=== PATIENT | male | born 1935 | race Caucasian/White ===

== ENCOUNTER 2016-06-06 19:33 | Inpatient (IN) | payer MEDICARE ==
[~2016-06-06] VITALS: Ht 177.8 cm; Wt 123.9 kg
[2016-06-06] VITALS (7 sets, daily range): BP systolic 116–154; BP diastolic 56–94; PULSE 94–102; RESP 18–36; O2SAT 95–98
[2016-06-06] MEDS ORDERED: Albuterol 2.5 mg/3 mL Inhalation Solution NEB ONE ×2 (19:53→20:49)
[2016-06-06 20:07] LABS: BASOPHILS % (AUTO) 0.1 % (0-3); EOSINOPHILS % (AUTO) 1.5 % (0-5); Mean Corpuscular Hemoglobin 30.9 pg (27.0-35.0); NEUTROPHILS % (AUTO) 82.2 % (40-74); Platelet Count 135 bil/L (150-400)
--- NOTE | 2016-06-06 20:08 | ED.REPORT ---
HPI-Dyspnea / Wheezing Date of Service Jun 06, 2016 ED Provider: Jose Ramirez MD This is a 81 year old male with a history of HTN, DM, aortic aneurysm, s/p cardiac stenting brought to the ED by EMS complaining of productive cough that began 2 days ago. Associated symptoms include rhinorrhea, nasal congestion, yellow sputum, fever, and chills. Denies chest pain, vomiting, nausea, or abdominal pain. Pt had the flu vaccine. Nursing Notes Stated Complaint: SHORT OF BREATH Chief Complaint: Respiratory Distress Nursing Notes Reviewed: Yes Allergies: Coded Allergies: No Known Allergies (Unverified , 06/06/16) General Time Seen by MD: 19:55 Chief Complaint Cough Arrived By: Ambulance Sudden in Onset?: Yes Onset Occurred: 2 days ago Symptom Duration: Since onset Severity: Current: No pain currently Pertinent Negative: Pt denies other symptoms Recent Healthcare: No recent doctor visit, No recent hospitalization Similar Sx Previous: No Past Medical History Past Medical History Notes: DNR Past Medical History DM HTN Hyperlipidemia Hx aortic aneurysm 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 GI: Denies: Abdominal pain, Nausea, Vomiting Neurologic: Denies: Headache Physical Exam Initial Vital Signs Vital Signs (First) Date Time Temp Pulse Resp B/P Pulse Ox O2 Delivery O2 Flow Rate FiO2 06/06/16 19:42 39 102 36 154/94 95 Non-Rebreather 10 Initial VS: Reviewed Head / Eyes: Atraumatic, Normocephalic, PERRL ENT: Mucous membranes moist, Conjunctiva normal, No scleral icterus Abdomen / GI: Soft, Non-tender, No guarding, No rebound, No distention Extremities: Vascular intact, Neuro intact, No swelling, No tenderness Skin: Warm, Dry, No cyanosis Neurologic: Alert, Oriented, Nonfocal Psychiatric: Mood/affect normal, Behavior normal, Normal thought content General/Constitutional: Awake, Alert Neck: Atraumatic, Supple, No meningismus, Full range of motion, No swelling, Non-tender, No masses Respiratory / Chest: No wheezing Coarse breath sounds bilaterally Cardiovascular: Heart rate NL, Regular rhythm, Heart sounds NL, Peripheral circulation NL Interpretation & Diagnostics Lab Results Interpretation Result Diagram: 06/06/16 1950 06/06/16 1950 Test 06/06/16 19:50 06/06/16 21:30 White Blood Count 8.2th/mm3 (3.8-10.1) Red Blood Count 4.33mil/mm3 (4.40-5.80) Hemoglobin 13.4g/dL (13.8-17.2) Hematocrit 42.0% (41.0-50.0) Mean Corpuscular Volume 97.0fL (81-100) Mean Corpuscular Hemoglobin 30.9pg (27.0-35.0) Mean Corpuscular Hemoglobin Concent 31.9% (32.0-37.0) Red Cell Distribution Width 13.3% (12.3-15.4) Platelet Count 135bil/L (150-400) Neutrophils (%) (Auto) 82.2% (40-74) Lymphocytes (%) (Auto) 9.1% (14-46) Monocytes (%) (Auto) 7.0% (4-12) Eosinophils (%) (Auto) 1.5% (0-5) Basophils (%) (Auto) 0.1% (0-3) Sodium Level 135mEq/L (134-144) Potassium Level 4.5mEq/L (3.5-5.2) Chloride Level 95mEq/L (97-108) Carbon Dioxide Level 29mmol/L (18-29) Blood Urea Nitrogen 14mg/dL (8-27) Creatinine 0.66mg/dL (0.76-1.27) Estimat Glomerular Filtration Rate 124mL/min (>59) Glucose Level 155mg/dL (60-99) Lactic Acid Level 1.9mmol/L (0.4-2.0) Calcium Level 8.8mg/dL (8.5-10.1) Magnesium Level 1.3mg/dL (1.6-2.6) Total Bilirubin 0.6mg/dL (0.0-1.2) Aspartate Amino Transf (AST/SGOT) 19U/L (0-50) Alanine Aminotransferase (ALT/SGPT) 16U/L (0-44) Alkaline Phosphatase 54U/L (25-160) Troponin T < 0.010ug/L (0.0-0.011) Total Protein 6.6g/dL (6.4-8.4) Albumin 3.4g/dL (3.4-5.0) Urine Color Yellow (YELLOW) Urine Appearance Cloudy (CLEAR,HAZY) Urine pH 5.0 (5.0-8.0) Urine Specific [place] 1.028 (1.003-1.035) Urine Protein 30mg/dL (NEG,TRACE) Urine Glucose (UA) Negativemg/dL (NEGATIVE) Urine Ketones Tracemg/dL (NEGATIVE) Urine Occult Blood Small (NEGATIVE) Urine Nitrite Positive (NEGATIVE) Urine Bilirubin Negative (NEGATIVE) Urine Urobilinogen Normalmg/dL (NORMAL) Urine Leukocyte Esterase Trace (NEGATIVE) Urine RBC 3-10/hpf (0-2) Urine WBC 11-50/hpf (0-5) Urine Epithelial Cells Occasional/hpf (NONE-MOD) Urine Crystals Amorphous urates (NONE Urine Bacteria Moderate/hpf (NONE-FEW) Urine Hyaline Casts None/lpf (NONE) Urine Granular Casts None seen (NONE SEEN) Urine Waxy Casts None seen (NONE SEEN) Urine Red Blood Cell Casts None seen (NONE SEEN) Urine White Blood Cell Casts None seen (NONE SEEN) Urine Mucus Present (None Seen) Urine Trichomonas None seen (NONE SEEN) Urine Yeast None (NONE SEEN) Urinalysis Comment None Urine Culture Reflexed Indicated ECG Interpretation ECG Interpretation: Tachycardia at a rate of 102 Prolonged IL interval Left atrial enlargement RBBB T-wave inversion in V1-[address] elevation Time: 20:19 Interpreted by: ED physician X-Ray Chest Interpretation Chest Xray Interpretation: IMPRESSION: Left lower lobe infiltrate suspicious for pneumonia. Tortuous aneurysmal aorta. Dictated by: Ravinder Torres M.D. on 06/06/2016 at 20:56 Approved by: Ravinder Torres M.D. on 06/06/2016 at 20:56 Re-Eval/Medical Decision Med Decision/Clinical Course 81-year-old male history of aortic aneurysm status post repair, diabetes, hypertension presented in respiratory distress. Patient with labored breathing on arrival requiring 10 L vapotherm fever to 103. Chest x-ray left lower lobe pneumonia. Influenza negative. White blood cell count normal. Lactate is 1.9. Patient was given several nebulizers and his oxygen improved to requiring 6 L. Patient will be admitted to [facility] with dose of Levaquin given here in the ER for pneumonia. He was also given a dose of Rocephin for possible UTI. Cultures sent prior to antibiotics. Re-Evaluation/Progress : Time of Eval: 21:33 Re-Evaluation/Progress Note: Discussed need for admission with family, all questions addressed. Consultation : Referral / Consult Name: Abena Ramos MD Consulted With: Hospitalist Call Returned at: 21:33 Dialysis Registered Nurse: Accepts admit Counseled Regarding: Diagnosis, Lab results, Need for follow-up, Need for admission Discharge & Departure Impression: Primary Impression: Pneumonia Pneumonia type: due to unspecified organism Laterality: bilateral Lung location: lower lobe of lung Qualified Code: J18.9 - Pneumonia, unspecified organism Additional Impression: UTI (urinary tract infection) Urinary tract infection type: site unspecified Hematuria presence: without hematuria Qualified Code: N39.0 - Urinary tract infection, site not specified Disposition: ADMITTED TO HOSPITAL Discharge Condition All VS Reviewed: Yes Condition: Stable Referrals: Denilson Swann PA-C (PCP) Scribe Attestation Portions of this note were transcribed by Tiffany Padilla. I, Dr. Ramirez personally performed the history, physical exam and medical decision-making; I reviewed and confirmed the accuracy of the information in the transcribed note. Signed by: Tiffany Padilla. 06/06/2016, 2030. Jose Ramirez MD Jun 06, 2016 20:08 TIFFANY PADILLA Jun 06, 2016 20:16
[2016-06-06] MEDS ORDERED: 0.9% Sodium Chloride 1,000 ML IV ONE (20:20)
[2016-06-06 20:33] LABS: TROPONIN T < 0.010 ug/L (0.0-0.011)
[2016-06-06 20:40] LABS: Magnesium 1.3 mg/dL (1.6-2.6)
[2016-06-06] MEDS ORDERED: Albuterol-Ipratropium 3 mL Inhalation Solution ONE (20:49)
--- NOTE | 2016-06-06 20:57 | DRSVH ---
PROCEDURE: X-RAY CHEST ONE VIEW, PORTABLE ([id number]) INDICATIONS: sob, fever TECHNIQUE: One view of the chest was acquired. COMPARISON: [facility], CR, XR CHEST 2VW, 12/30/2014, 14:16. FINDINGS: Surgical changes and devices: There is a stent descending aorta. Lungs and pleura: Left lower lobe opacity may be infiltrate. No pleural effusions or pneumothorax. Mediastinum: Mediastinal contours appear normal. Heart size is normal. Aorta is tortuous and aneur ysmal. Bones and chest wall: No suspicious bony lesions. Overlying soft tissues appear unremarkable. IMPRESSION: Left lower lobe infiltrate suspicious for pneumonia. Tortuous aneurysmal aorta. Dictated by: Ravinder Torres M.D. on 06/06/2016 at 20:56 Approved by: Ravinder Torres M.D. on 06/06/2016 at 20:56
[2016-06-06] MEDS ORDERED: levoFLOXacin Inj 750 MG in IV Premix 1 EACH IV ONE (21:15)
[2016-06-06] MEDS ORDERED: Ondansetron 2 mg/mL 2 mL Inj IVPUSH PRN (21:40)
[2016-06-06] MEDS ORDERED: Alum-Mag Hydrox-Simeth 30 mL Suspension PO PRN ×2 (21:40→22:30)
[2016-06-06 21:56] LABS: APPEARANCE,URINE CLOUDY (CLEAR,HAZY); COLOR,URINE YELLOW (YELLOW); OCCULT BLOOD,URINE SMALL (NEGATIVE)
[2016-06-06 21:57] LABS: UROBILINOGEN,URINE NORMAL (NORMAL)
[2016-06-06] MEDS ORDERED: cefTRIAXone Inj 1,000 MG in IV Premix 1 EACH IV ONE (22:15)
[2016-06-06] MEDS ORDERED: Polyethylene Glycol (PEG) 17 Gm Powder PO PRN (22:30)
[2016-06-06] MEDS ORDERED: Albuterol 2.5 mg/3 mL Inhalation Solution NEB PRN (22:30)
[2016-06-06] MEDS ORDERED: Magnesium Sulf 4 Gm/100 mL H2O 4 GM in IV Premix 1 EACH IV ONE (22:35)
[2016-06-06] MEDS ORDERED: 0.9% Sodium Chloride 250 ML ONE (23:33)
[2016-06-06] MEDS ORDERED: METF500T4 PO (23:42)
[2016-06-06] MEDS ORDERED: ENAL5TAB PO (23:46)
[2016-06-06] MEDS ORDERED: TRAZ-118 PO (23:46)
[2016-06-06] MEDS ORDERED: PRAV20TA2 PO (23:46)
[2016-06-06] MEDS ORDERED: AMLO5TAB2 PO (23:46)
[2016-06-06] MEDS ORDERED: HYDR-3825 PO (23:46)
[2016-06-06] MEDS ORDERED: METO50TA3 PO (23:46)
[2016-06-06] MEDS ORDERED: KRIL1CAP22 PO (23:51)
[2016-06-06] MEDS ORDERED: CHOL10008 PO (23:51)
[2016-06-06] MEDS ORDERED: CRAN500T2 PO (23:51)
[2016-06-06] MEDS ORDERED: MILK500C PO (23:51)
[2016-06-06] MEDS ORDERED: MULT1CAP33 PO (23:51)
[2016-06-06] MEDS ORDERED: MULT-1052 PO (23:51)
[2016-06-06] MEDS ORDERED: UBID100C25 PO (23:51)
[2016-06-07] VITALS (15 sets, daily range): BP systolic 108–138; BP diastolic 41–77; PULSE 68–104; RESP 20–28; O2SAT 90–98
--- NOTE | 2016-06-07 | NUR ---
Admit to PCC Pt admitted to PCC room 2023 from ED in stable condition. A&O x 3. Able to move upper arms, with severe deficits in B legs s/p SCI in 2013. This is pts baseline. Tele shoed SR 90s with 1 degree AVB and IVCD. SpO2 high 90s on 5L Oxymask. Denies CP or worsening SOB. Audible wheezes heard without stethoscope, but pt does not appear to be in resp. distress. Also denies n/v/d or abdominal pain. Suprapubic catheter present on admission and appears to be draining to gravity. Brief in place for fecal incontinence. Pt oriented to room, floor, and call light. Family at bedside to sign belongings sheet. Pt bottom is red, so will initiate q2-3 hour turns. He assists well with this. Care ongoing
[2016-06-07] MEDS ORDERED: Glucose 40% Oral Gel 15 Gm Tube PO PRN (00:20)
--- NOTE | 2016-06-07 00:23 | PCM.HPMED ---
Subjective Date of Service Jun 06, 2016 Primary Provider: Admitting Physician: Abena Ramos MD Primary Care Physician: Denilson Swann PA-C Attending Physician: Abena Ramos MD Chief Complaint: Dyspnea, Cough, Fever and Chills History of Present Illness: Patient is a 81-year-old male with hypertension, type 2 diabetes, CAD s/p CABG, dyslipidemia and AAA presenting with dyspnea, cough and fever. Patient is accompanied at bedside by his family. He and his are residents at [place]. Patient reports onset of shortness of breath two days ago that was accompanied by a productive cough with yellow/green sputum. Patient states he had worsening shortness of breath with wheezing, and initially did not have a fever but at 4PM today he started experiencing uncontrollable shaking chills with a recorded temperature of 103.2F. This prompted him to be brought in by his family for further evaluation. Patient says he tried cough syrup and Mucinex. He also endorses some rhinorrhea but otherwise denies chest pain, nausea, emesis, lightheadedness, dizziness, abdominal pain. 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 At time of visit, the patient reports his breathing is a little improved. Patient denies supplemental oxygen use at home. He reports being up to date with pneumonia vaccines. In the ED, vitals: temp 39, HR 97, RR 20 satting 97% on 6L. Labs: WBC 8.2, platelets 135. BUN 14, creatinine 0.66. Lactic acid 1.9. Troponin<0.010. Influenza screen negative. Chest x-ray reads left lower lobe infiltrate. Patient was given levofloxacin and ceftriaxone in the ED. Review of Systems: A comprehensive review of systems was conducted with the patient and found to be negative except as above in the History of Present Illness. Allergies Coded Allergies: No Known Drug Allergies (Verified Allergy, Unknown, 06/06/16) Home Medications Metformin 1000mg PO BID Enalapril 5mg PO BID Metoprolol 50mg PO BID Amlodipine 5mg PO BID Pravastatin 20mg PO daily Trazodone 100mg PO QHS Hydrocodone 7.5mg PO TID PMH Hypertension Type 2 diabetes mellitus AAA CAD s/p CABG Dyslipidemia Paraplegia History of prostate cancer s/p seed therapy . Surgical History Cholecystectomy Back surgery Appendectomy Cataracts Lithotripsy Family History Mother at [id number] from pancreatic cancer Father in his 70s from CHF Social History Occupation: Retired, former forklift oper. Hx Alcohol Use: No Hx Substance Use: No Hx Tobacco Use: No Smoking Status: Unknown if Ever Smoker Living Arrangement: Assisted Living ([facility]) Exam Vital Signs Vital Sign - Last Date Time Temp Pulse Resp B/P Pulse Ox O2 Delivery O2 Flow Rate FiO2 06/06/16 22:20 98 26 116/56 96 Simple Mask 5 06/06/16 22:04 38.1 Exam General: Obese gentleman, Mild distress, Well-developed, Well-nourished, Appropriately interactive HEENT: Normocephalic, atraumatic. External ears without defect. Pupils equal, round, and reactive to light. Anicteric sclerae, moist conjunctivae, and no lid lag. Oropharynx free of erythema and cobble stoning with moist mucosa. Neck: Supple. No jugular venous distension appreciated. No lymphadenopathy or thyromegaly. Cardiovascular: Regular rate and rhythm with no murmurs, rubs, or gallops appreciated Pulmonary: Diffuse wheezes bilaterally. Increased work of breathing. Abdomen: Bowel tones present. Obese. Soft, nontender, nondistended Genitourinary: Suprapubic catheter with Herrera bag in place Extremities: Mild pitting edema in lower extremities bilaterally. No clubbing, cyanosis, or lymphadenopathy appreciated. Neurological: Paraplegia. Psychiatric: Normal mood and affect.Alert and oriented to person, place, and time. Lab and Diagnostics Result Diagram: 06/06/16194906/06/161949 X-Rays, CTs and MRIs Date of Service: 06/06/161944 PROCEDURE: X-RAY CHEST ONE VIEW, PORTABLE ([id number]) INDICATIONS: sob, fever TECHNIQUE: One view of the chest was acquired. COMPARISON: [facility], CR, XR CHEST 2VW, 12/30/2014, 14:16. FINDINGS: Surgical changes and devices: There is a stent descending aorta. Lungs and pleura: Left lower lobe opacity may be infiltrate. No pleural effusions or pneumothorax. Mediastinum: Mediastinal contours appear normal. Heart size is normal. Aorta is tortuous and aneurysmal. Bones and chest wall: No suspicious bony lesions. Overlying soft tissues appear unremarkable. IMPRESSION: Left lower lobe infiltrate suspicious for pneumonia. Tortuous aneurysmal aorta. Dictated by: Ravinder Torres M.D. on 06/06/2016 at 20:56 Approved by: Ravinder Torres M.D. on 06/06/2016 at 20:56 Assessment & Plan Patient is a 81-year-old male with hypertension, type 2 diabetes, CAD s/p CABG, dyslipidemia and AAA presenting with dyspnea, cough and fever and admitted for pneumonia: 1. Severe sepsis. Present on admission. Active -Meets criteria with temp (39F), HR (102), RR (36) with suspected pulmonary and genitourinary source -Patient received 1L NS in ED -Lactic acid 1.9 -Blood and urine cultures pending 2. Community acquired pneumonia. Present on admission. Active -Chest x-ray reads left lower lobe infiltrate -Ceftriaxone and levofloxacin given in the ED -Pending studies: procalcitonin, Legionella and strep pneumo urine Ag, Respiratory virus PCR -Continue supplemental oxygen to maintain O2 sats>90% -Ceftriaxone and azithromycin 3. Urinary tract infection. Present on admission. Active -UA with nitrites, leukocyte esterase, WBC 11-50, bacteria in the setting of patient with suprapubic catheter -Urine culture pending -Abx as above 4. Mild thrombocytopenia, unknown acuity. Present on admission. Active -Monitor with CBC 5. Type 2 diabetes mellitus, chronic. Present on admission -Bedside glucose checks -Hold metformin -Low dose correctional insulin Lispro 6. CAD, chronic. Present on admission -Continue home statin, metoprolol 7. Hypertension, chronic. Present on admission -Continue home metoprolol, amlodipine, enalapril Patient Status: Patient is admitted under inpatient status with expected length of stay greater than 2 midnights due to severity of presenting symptoms, risk of adverse event, and complexity of treatment plan. GI Prophylaxis: Not indicated VTE Prophylaxis: Sub-Q Heparin (Unfractionated) Resuscitation Status: DNR/DNI:Do Not Resuscitate/Intubate Attending Statement Pt seen and examined by myself and agree with above plan. Cristobal Chiang DO Jun 06, 2016 22:34 Abena Ramos MD Jun 08, 2016 06:06
[2016-06-07] MEDS: Albuterol 2.5 mg/3 mL Inhalation Solution NEB SCH ×6 (00:30→19:59)
[2016-06-07] MEDS: Heparin 5,000 Unit/mL Inj SUBQ SCH ×3 (01:16→17:17)
[2016-06-07 04:07] LABS: BASOPHILS % (AUTO) 0.1 % (0-3); EOSINOPHILS % (AUTO) 0.4 % (0-5); MONOCYTES % (AUTO) 9.2 % (4-12); Mean Corpuscular Hemoglobin 30.7 pg (27.0-35.0); NEUTROPHILS % (AUTO) 78.9 % (40-74); Platelet Count 134 bil/L (150-400)
[2016-06-07 04:25] LABS: Magnesium 2.3 mg/dL (1.6-2.6)
[2016-06-07] MEDS: cefTRIAXone Inj 2,000 MG in IV Premix 1 EACH IV SCH (07:46)
[2016-06-07] MEDS: Insulin LISPRO 300 Unit/3 mL Inj SUBQ SCH ×4 (08:00→22:33)
[2016-06-07] MEDS: predniSONE 20 mg Tablet PO SCH (12:22)
[2016-06-07] MEDS: HYDROcodone-APAP 7.5-325 mg Tablet PO SCH ×2 (12:23→20:55)
--- NOTE | 2016-06-07 14:04 | NUR ---
Evaluation completed. Rec: Schwana/Soft with no straws. Medication with nectar. AUTOMOTIVE PARTS SPECIALIST to follow Please go to "Notes" then click on "Assessments and Notes" (bottom left corner of screen). Then select appropriate discipline tab on top of screen.
--- NOTE | 2016-06-07 16:17 | NUR ---
Social Work: Initial Assessment D: Per EMR review, pt is a 81 year old male admitted for pneumonia. Pt is Medicare with [employer] suppplement; Pt does not have LTC insurance or VA benefits. PCP is Denilson Swann PA-C. NOK is Ariana Sinclair, , . POLST on file- pt declined further AD information. Readmit score not entered at this time. NUCLEAR POWER REACTOR OPERATOR met with pt at bedside. Pt is a resident at [facility]. Pt states that he is I at baseline. He does not drive. Pt states he has home health however cannot remember which company it is through. Pt states that he would like to return to [place] at time of discharge. Pt worked with PT and has been cleared to go home/Return to [facility]. t/c to [facility] admissions; they will follow the pt's care. Access provided. A: Pt who is I at baseline. P: Anticipate pt to discharge back to [facility] once medically stable; [place] or patient's to transport. NUCLEAR POWER REACTOR OPERATOR to continue to follow. KATIE Bah Addendum: 06/07/16 at 1621 by LAWANDA VALVERDE Amended: Links added.
--- NOTE | 2016-06-07 18:26 | NUR ---
Respiration/Ambulation Pt. was on 5L NC, lung sounds wheezy and rhonci this morning. Pt. on 2L NC SpO2 96% this evening and diminished wheezing and rhonci sounds noted. Pt. ambulated x2 this shift with PT and RN/SOLID WASTE DISPOSAL MANAGER using a FWW, Pt. stated no SOB upon walking.
--- NOTE | 2016-06-07 19:16 | PCM.PNMED ---
Subjective Date of Service Jun 07, 2016 Subjective Yahir Grant is a 81-year-old gentleman with a past medical history significant for hypertension, type 2 diabetes, CAD s/p CABG, dyslipidemia and AAA who presented form [facility] with dyspnea, cough and fever. He met sepsis criteria and was admitted for severe sepsis secondary to pneumonia and urinary tract infection. Ad[facility] the [facility] with telemetry. Exam Vital Signs Vital Sign - Last Date Time Temp Pulse Resp B/P Pulse Ox O2 Delivery O2 Flow Rate FiO2 06/07/16 12:22 74 26 97 Nasal Cannula 4.00 06/07/16 11:56 36.8 118/58 Intake and Output 06/06/16 06/06/16 06/07/16 Cumulative From/Thru 15:00 23:00 07:00 06/06/16 19:42 - 06/07/16 06:07 Intake Total 1000 ml 200 ml 1200 ml Output Total 300 ml 200 ml 500 ml Balance 700 ml 0 ml 700 ml Intake IV Total 1000 ml 200 ml 1200 ml Output Urine Total 300 ml 200 ml 500 ml # Voids 1 1 # Bowel Movements 0 0 Exam General: Well-developed, Obese gentleman, appears uncomfortable but in no acute distress. Appropriately interactive. HEENT: Normocephalic, atraumatic. External ears without defect. PERRLA. Anicteric sclerae. Moist mucosa. Neck: Supple. No jugular venous distension appreciated. No lymphadenopathy or thyromegaly. Cardiovascular: Regular rate and rhythm with no murmurs, rubs, or gallops appreciated Pulmonary: Symmetric chest rise with diffuse wheezes in all lung kelly. Increased work of breathing. Abdomen: Bowel tones present. Soft, obese, nontender, nondistended. No hepatomegaly or masses appreciated. Genitourinary: Suprapubic catheter with Herrera bag in place, no surrounding erythema or skin breakdown. Extremities: Mild pitting edema in lower extremities bilaterally. No clubbing, cyanosis, or lymphadenopathy appreciated. Psychiatric: Alert and oriented to person, place, and time. Normal mood and affect IVs and Medications Medications Reviewed: Medications were reviewed in detail Lab and Diagnostics White Blood Count 9.3, Red Blood Count 4.04, Hemoglobin 12.4, Hematocrit 39.6, Mean Corpuscular Volume 98.0, Mean Corpuscular Hemoglobin 30.7, Mean Corpuscular Hemoglobin Concent 31.3, Red Cell Distribution Width 13.4, Platelet Count 134, Neutrophils (%) (Auto) 78.9, Lymphocytes (%) (Auto) 11.3, Monocytes ( %) (Auto) 9.2, Eosinophils (%) (Auto) 0.4, Basophils (%) (Auto) 0.1 Sodium Level 136, Potassium Level 4.6, Chloride Level 96, Carbon Dioxide Level 30, Blood Urea Nitrogen 15, Creatinine 0.72, Estimat Glomerular Filtration Rate 112, Glucose Level 154, Calcium Level 8.3, Magnesium Level 2.3, Total Bilirubin 0.6, Aspartate Amino Transf (AST/SGOT) 15, Alanine Aminotransferase (ALT/SGPT) 13, Alkaline Phosphatase 46, Total Protein 5.7, Albumin 3.3, Procalcitonin 0.11 Result Diagram: 06/07/16 0350 06/07/16 0350 Microbiology Preliminary urine culture negative. Blood cultures pending. Urine legionella and S.pneumoniae antigens negative. X-Rays, CTs and MRIs X-RAY CHEST ONE VIEW, PORTABLE (05/28/16) IMPRESSION: Left lower lobe infiltrate suspicious for pneumonia. Tortuous aneurysmal aorta. Dictated and approved by: Ravinder Torres M.D. on 06/06/2016 at 20:56 Assessment & Plan Patient is a 81-year-old male with hypertension, type 2 diabetes, CAD s/p CABG, dyslipidemia and AAA presenting with dyspnea, cough and fever and admitted for severe sepsis secondary to pneumonia and urinary tract infection. Hospital day # 1. 1. Severe sepsis. Present on admission. Active -Met criteria with elevated temp, tachycardia, tachypnea, with pulmonary and genitourinary source. -Received 1L of normal saline in the ED -Lactic acid 1.9 -Urine culture negative -Blood cultures pending 2. Community acquired pneumonia. Present on admission. Active -Chest x-ray reads left lower lobe infiltrate -Ceftriaxone and levofloxacin given in the ED -Procalcitonin 0.11, Legionella and strep pneumo urine Ag negative -Respiratory virus PCR positive for Metapneumovirus -Continue supplemental oxygen to maintain O2 sats>90% -Switch ceftriaxone/azithromycin to Zosyn to cover for HCAP (patient resident of [place]) 3. Urinary tract infection. Present on admission. Active -UA with nitrites, leukocyte esterase, WBC 11-50, bacteria in the setting of patient with suprapubic catheter -Urine culture with no growth thus far -Abx as above 4. Mild thrombocytopenia, unknown acuity. Present on admission. Active -Monitor with CBC 5. Type 2 diabetes mellitus, chronic. Present on admission -HbA1c pending -Bedside glucose checks -Hold metformin -Low dose correctional insulin Lispro 6. CAD, chronic. Present on admission -Continue home statin, metoprolol 7. Hypertension, chronic. Present on admission -Continue home metoprolol, amlodipine, enalapril 8. Chronic pain, present on admission. -Continue home dosing Hydrocodone 7.5mg po tid. Acetaminophen-fever/headache/mild/moderate pain Antiemetics, as needed Bowel regimen, as needed. Disposition: Patient will likely need several more days on inpatient monitoring for IV fluids and antibiotics. Pain Evaluation: Adequate Pain Control GI Prophylaxis: Not indicated VTE Prophylaxis: Sub-Q Heparin (Unfractionated) VTE Mechanical Devices: Intermittant Pneumatic CD Resuscitation Status: DNR/DNI:Do Not Resuscitate/Intubate Attending Statement The patient was seen and examined together with Dr. Figueroa on 06/07/2016 and I agree with the history, exam and plan as outlined in the note above. . Alyssa Figueroa DO Jun 07, 2016 14:46 Adrian Aguilar MD Jun 21, 2016 17:40
[2016-06-08] VITALS (14 sets, daily range): BP systolic 115–147; BP diastolic 61–86; PULSE 64–94; RESP 16–28; O2SAT 88–96
[2016-06-08] MEDS: Heparin 5,000 Unit/mL Inj SUBQ SCH ×3 (00:44→16:20)
[2016-06-08] MEDS: Albuterol 2.5 mg/3 mL Inhalation Solution NEB SCH ×6 (01:12→20:16)
--- NOTE | 2016-06-08 03:19 | NUR ---
O2/Tele/SL A&Ox3 , . Suprapubic catheter draining pale yellow urine to gravity/ On 2 L O2 per NC. Saline locked, Wheezy breath sounds, Denies pain beyond chronic pain. Tele: SR,1st degree HB, some varied ectopy. Droplet precautions for Metapneumovirus . (pneumonia)
[2016-06-08 06:20] LABS: BASOPHILS % (AUTO) 0.1 % (0-3); EOSINOPHILS % (AUTO) 0 % (0-5); MONOCYTES % (AUTO) 6.3 % (4-12); Mean Corpuscular Hemoglobin 30.6 pg (27.0-35.0); Mean Corpuscular Volume 99 fL (81-100); NEUTROPHILS % (AUTO) 79.1 % (40-74); Platelet Count 148 bil/L (150-400)
[2016-06-08] MEDS: Insulin LISPRO 300 Unit/3 mL Inj SUBQ SCH ×4 (07:43→19:31)
[2016-06-08] MEDS: cefTRIAXone Inj 2,000 MG in IV Premix 1 EACH IV SCH (07:44)
[2016-06-08] MEDS: predniSONE 20 mg Tablet PO SCH (07:45)
[2016-06-08] MEDS: HYDROcodone-APAP 7.5-325 mg Tablet PO SCH ×3 (07:45→19:26)
--- NOTE | 2016-06-08 10:35 | PCM.PNMED ---
Subjective Date of Service Jun 08, 2016 Subjective Yahir Grant is a 81-year-old gentleman with a past medical history significant for hypertension, type 2 diabetes, CAD s/p CABG, dyslipidemia and AAA who presented form [facility] with dyspnea, cough and fever. He met sepsis criteria and was admitted for severe sepsis secondary to pneumonia and urinary tract infection. Patient states that he is feeling much better this morning. He reports a productive cough, good appetite and denies chest pain, palpitations, abdominal pain, nausea or vomiting. He endorses working with physical therapy yesterday and ambulated in the hallway several times. No acute events overnight. Per nursing, patient's suprapubic catheter continues to drain pale/yellow urine. Patient ambulated with physical therapy using a four -wheeled walker and SpO2 96% on 2l nasal cannula. Exam Vital Signs Vital Sign - Last Date Time Temp Pulse Resp B/P Pulse Ox O2 Delivery O2 Flow Rate FiO2 06/08/16 05:29 64 16 94 Nasal Cannula 2.00 06/08/16 04:08 36.5 120/61 Intake and Output 06/07/16 06/07/16 06/08/16 Cumulative From/Thru 15:00 23:00 07:00 06/06/16 19:42 - 06/08/16 05:09 Intake Total 60 ml 550 ml 1810 ml Output Total 1100 ml 800 ml 2400 ml Balance -1040 ml -250 ml -590 ml Intake Oral 550 ml 550 ml IV Total 60 ml 1260 ml Output Urine Total 1100 ml 800 ml 2400 ml # Voids 1 # Bowel Movements 0 0 Exam General: Well-developed, Obese gentleman, appears comfortable. In no acute distress. Appropriately interactive. HEENT: Normocephalic, atraumatic. External ears without defect. PERRLA. Anicteric sclerae. Moist mucosa. Neck: Supple. No jugular venous distension appreciated. No lymphadenopathy or thyromegaly. Cardiovascular: Regular rate and rhythm with no murmurs, rubs, or gallops appreciated Pulmonary: Symmetric chest rise with diffuse wheezes in all lung kelly.Normal respiratory effort Abdomen: Bowel tones present. Soft, obese, nontender, nondistended. No hepatomegaly or masses appreciated. Genitourinary: Suprapubic catheter with Herrera bag in place, no surrounding erythema or skin breakdown. Extremities: Mild pitting edema in lower extremities bilaterally. No clubbing, cyanosis, or lymphadenopathy appreciated. Psychiatric: Alert and oriented to person, place, and time. Normal mood and affect IVs and Medications Medications Reviewed: Medications were reviewed in detail Lab and Diagnostics White Blood Count 7.0, Red Blood Count 3.96, Hemoglobin 12.1, Hematocrit 39.3, Mean Corpuscular Volume 99, Mean Corpuscular Hemoglobin 30.6, Mean Corpuscular Hemoglobin Concent 30.8, Red Cell Distribution Width 13.4, Platelet Count 148, Neutrophils (%) (Auto) 79.1, Lymphocytes (%) (Auto) 14.5, Monocytes (%) (Auto) 6.3, Eosinophils (%) (Auto) 0, Basophils (%) (Auto) 0.1 Sodium Level 142, Potassium Level 4.9, Chloride Level 99, Carbon Dioxide Level 34, Blood Urea Nitrogen 18, Creatinine 0.80, Estimat Glomerular Filtration Rate 99, Glucose Level 128, Calcium Level 8.8, Total Bilirubin 0.3, Aspartate Amino Transf (AST/SGOT) 12, Alanine Aminotransferase (ALT/SGPT) 11, Alkaline Phosphatase 46, Total Protein 5.7, Albumin 3.2, Procalcitonin 0.16 Result Diagram: 06/08/16 0500 06/08/16 0500 Microbiology Preliminary urine culture negative. Blood cultures pending. Urine legionella and S.pneumoniae antigens negative. X-Rays, CTs and MRIs X-RAY CHEST ONE VIEW, PORTABLE (05/28/16) IMPRESSION: Left lower lobe infiltrate suspicious for pneumonia. Tortuous aneurysmal aorta. Dictated and approved by: Ravinder Torres M.D. on 06/06/2016 at 20:56 Assessment & Plan Patient is a 81-year-old male with hypertension, type 2 diabetes, CAD s/p CABG, dyslipidemia and AAA presenting with dyspnea, cough and fever and admitted for severe sepsis secondary to pneumonia and urinary tract infection. Hospital day # 2. 1. Severe sepsis. Present on admission. Active -Met criteria with elevated temp, tachycardia, tachypnea, with pulmonary and genitourinary source. -Received 1L of normal saline in the ED, Lactic acid 1.9 -Urine culture, preliminary result was negative. Now growing Enterobacter cloacae, sensitive to Ceftriaxone. -Blood cultures with no growth thus far - Continue ceftriaxone/azithromycin. 2. Community acquired pneumonia. Present on admission. Active -Chest x-ray reads left lower lobe infiltrate -Ceftriaxone and levofloxacin given in the ED -Procalcitonin 0.11 and slightly up today at 0.16, Legionella and strep pneumo urine Ag negative -Respiratory virus PCR positive for Metapneumovirus -Continue supplemental oxygen to maintain O2 sats>90% -Continue ceftriaxone/azithromycin 3. Urinary tract infection. Present on admission. Active -UA with nitrites, leukocyte esterase, WBC 11-50, bacteria in the setting of patient with suprapubic catheter -Urine culture, as above. -Antibiotics, as above 4. Mild thrombocytopenia, unknown acuity. Present on admission. Active -Monitor with CBC 5. Type 2 diabetes mellitus, chronic. Present on admission -HbA1c pending -Bedside glucose checks -Hold metformin -Low dose correctional insulin Lispro 6. CAD, chronic. Present on admission -Continue home statin, metoprolol 7. Hypertension, chronic. Present on admission -Continue home metoprolol, amlodipine, enalapril 8. Chronic pain, present on admission. -Continue home dosing Hydrocodone 7.5mg po tid. Acetaminophen-fever/headache/mild/moderate pain Antiemetics, as needed Bowel regimen, as needed. Disposition: Patient will likely need 1-2 more days of inpatient monitoring for IV fluids and antibiotics. Pain Evaluation: Adequate Pain Control GI Prophylaxis: Not indicated VTE Prophylaxis: Sub-Q Heparin (Unfractionated) VTE Mechanical Devices: Intermittant Pneumatic CD Resuscitation Status: DNR/DNI:Do Not Resuscitate/Intubate Attending Statement The patient was seen and examined together with Dr. Figueroa on 06/08/2016 and I agree with the history, exam and plan as outlined in the note above. . Alyssa Figueroa DO Jun 08, 2016 07:39 Adrian Aguilar MD Jun 21, 2016 17:40
--- NOTE | 2016-06-08 13:28 | NUR ---
HERRERA Signed Verbal Consent Pt on Precautions
--- NOTE | 2016-06-08 16:28 | NUR ---
Ambulation/O2 The pt is feeling significantly improved since yesterday. He was able to walk the unit with PT, and has been cleared by PT to walk the unit with family, which he did numerous times during the shift. His O2 needs have varied between RA and 2L NC, and is currently resting on RA with O2 sats holding in the low 90's.
[2016-06-09] VITALS (16 sets, daily range): BP systolic 128–161; BP diastolic 80–88; PULSE 70–92; RESP 18–24; O2SAT 90–96
[2016-06-09] MEDS: Albuterol 2.5 mg/3 mL Inhalation Solution NEB SCH ×7 (00:14→23:34)
[2016-06-09] MEDS: Heparin 5,000 Unit/mL Inj SUBQ SCH ×4 (00:47→23:53)
[2016-06-09 04:23] LABS: BASOPHILS % (AUTO) 0.4 % (0-3); EOSINOPHILS % (AUTO) 0.4 % (0-5); MONOCYTES % (AUTO) 8.7 % (4-12); Mean Corpuscular Hemoglobin 30.7 pg (27.0-35.0); Mean Corpuscular Volume 99.5 fL (81-100); NEUTROPHILS % (AUTO) 63.9 % (40-74); Platelet Count 169 bil/L (150-400)
--- NOTE | 2016-06-09 05:10 | NUR ---
Respiratory: pt placed on 2 L NC overnight. Sp02 low 90s. pt sleeping comfortably, turning and repositioning encouraged.
[2016-06-09] MEDS: predniSONE 20 mg Tablet PO SCH (07:40)
[2016-06-09] MEDS: Insulin LISPRO 300 Unit/3 mL Inj SUBQ SCH ×4 (07:50→20:46)
[2016-06-09] MEDS: HYDROcodone-APAP 7.5-325 mg Tablet PO SCH ×3 (07:50→20:43)
[2016-06-09] MEDS: cefTRIAXone Inj 2,000 MG in IV Premix 1 EACH IV SCH (08:01)
[2016-06-09] MEDS: guaiFENesin 600 mg ER12 Tablet PO SCH ×2 (12:35→20:43)
--- NOTE | 2016-06-09 13:04 | DRSVH ---
PROCEDURE: X-RAY CHEST ONE VIEW, PORTABLE ([id number]) INDICATIONS: wheezing, sob TECHNIQUE: One view of the chest was acquired. COMPARISON: [facility], CR, XR CHEST 1VW (PORTABLE), 06/06/2016, 20:32. 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 Left neck surgical clips. Lungs and pleura: No pleural effusions or pneumothorax. Lungs are clear. Mediastinum: Mediastinal contours appear normal. Heart size is normal. Bones and chest wall: No suspicious bony lesions. Overlying soft tissues appear unremarkable. IMPRESSION: No acute cardiopulmonary disease process. Dictated by: Meri Duval MD, PhD on 06/09/2016 at 13:02 Approved by: Meri Duval MD, PhD on 06/09/2016 at 13:02
--- NOTE | 2016-06-09 14:38 | NUR ---
Ambulation PT up walking in hallway SBA with FWW. Steady gait, vitals stable, on RA and sats remaining above 90%. Will continue to monitor.
--- NOTE | 2016-06-09 15:41 | NUR ---
Social Work: Continued Discharge Planning D: Pt discussed in morning rounds. Pt is not medically stable for discharge at this time. Anticipate possible return to [place] in 1-2 days. Per PT notes, pt is safe to discharge back home/assisted living. t/c to Demi with [facility] requesting they look at pt's notes to determine if he is appropriate for return to [facility] or requires skilled rehab. She is leaving for the day but will have staff look at his notes tomorrow. A: Pt who is ambulating I P: Anticipate pt to return to [facility] pending approval from admissions staff; STAFF CLIMATE SCIENTIST to continue to follow KATIE Bah
[2016-06-10] VITALS (7 sets, daily range): BP systolic 125–137; BP diastolic 82–94; PULSE 66–89; RESP 18–20; O2SAT 87–94
--- NOTE | 2016-06-10 00:26 | PCM.PNMED ---
Subjective Date of Service Jun 10, 2016 Subjective Yahir Grant is a 81-year-old male with a past medical history significant for paraplegia, hypertension, diabetes mellitus type II, non-insulin using, CAD status post CABG, dyslipidemia, and AAA who presented to ED with complaints of dyspnea, cough and fever and was admitted for severe sepsis secondary to pneumonia and UTI. Hospital day #4. Overnight: There were no acute events. The patient is resting in bedside chair comfortably and in no acute distress. He reports that he feels better and is eager to go home. He endorses cough more productive of yellow sputum. He denies headache, chest pain, shortness of breath, abdominal pain, nausea, vomiting, fever, chills, dysuria, diarrhea or constipation. He is up ambulating in gardiner with walker and nursing staff. . Exam Vital Signs Vital Sign - Last Date Time Temp Pulse Resp B/P Pulse Ox O2 Delivery O2 Flow Rate FiO2 06/09/16 23:56 36.6 75 20 128/80 95 Nasal Cannula 4.00 Intake and Output 06/09/16 06/09/16 06/10/16 Cumulative From/Thru 15:00 23:00 07:00 06/06/16 19:42 - 06/09/16 18:05 Intake Total 668 ml 2898 ml Output Total 525 ml 3450 ml Balance 143 ml -552 ml Intake Oral 568 ml 1538 ml IV Total 100 ml 1360 ml Output Urine Total 525 ml 3450 ml # Voids 1 # Bowel Movements 0 Exam General: Well-developed, obese gentleman, appears comfortable. In no acute distress. Appropriately interactive. HEENT: Normocephalic, atraumatic. External ears without defect. Pupils equal round reactive to light. Anicteric sclerae. Moist mucosa. Neck: Supple. No jugular venous distension appreciated. No lymphadenopathy or thyromegaly. Cardiovascular: Regular rate and rhythm with no murmurs, rubs, or gallops appreciated Pulmonary: Symmetric chest rise with diffuse wheezes in all lung kelly. Normal respiratory effort. Abdomen: Soft, obese, nontender, nondistended, bowel sounds present. No hepatomegaly or masses appreciated. Genitourinary: Suprapubic catheter with Herrera bag in place, no surrounding erythema or skin breakdown. Extremities: +2 pitting edema bilaterally in lower extremities. No clubbing or cyanosis. Psychiatric: Alert and oriented to person, place, and time. Normal mood and affect. . IVs and Medications Medications Reviewed: Medications were reviewed in detail Lab and Diagnostics Item Value Date Time Calcium Level 9.0 mg/dL 06/09/16 0350 Aspartate Amino Transf (AST/SGOT) 12 U/L 06/09/16 0350 Total Bilirubin 0.2 mg/dL 06/09/16 0350 Alanine Aminotransferase (ALT/SGPT) 10 U/L 06/09/16 0350 Alkaline Phosphatase 41 U/L 06/09/16 0350 Total Protein 5.7 g/dL L 06/09/16 0350 Albumin 3.2 g/dL L 06/09/16 0350 Procalcitonin 0.16 ng/mL 06/08/16 0500 Result Diagram: 06/09/16 03506/09/16 0350 Microbiology Blood cultures 2 negative. Influenza screen negative. Respiratory viral PCR positive for meta-pneumo virus. Urine culture positive for Enterobacter cloaca resistant to Augmentin and cefuroxime. Strep pneumoniae and legionella urine antigens negative. . X-Rays, CTs and MRIs X-RAY CHEST ONE VIEW, PORTABLE IMPRESSION: Left lower lobe infiltrate suspicious for pneumonia. Tortuous aneurysmal aorta. Dictated and approved by: Ravinder Torres M.D. on 06/06/2016 at 20:56 . Assessment & Plan Yahir Grant is a 81-year-old male with a past medical history significant for paraplegia hypertension, diabetes mellitus type II, non-insulin using, CAD status post CABG, dyslipidemia, and AAA who presented to ED with complaints of dyspnea, cough and fever and was admitted for severe sepsis secondary to pneumonia and UTI. Hospital day #4. 1. Severe sepsis. Present on admission. Resolved. - SIRS criteria met: Febrile, tachycardia, tachypnea, with pulmonary and genitourinary source. - Early goal-directed therapy met including IV fluid resuscitation and broad- spectrum antibiotics. 2. Community acquired pneumonia, present on admission. Active - Initial chest x-ray showed left lower lobe infiltrate. Repeat chest x-ray today. - Ceftriaxone and levofloxacin given in the ED - Procalcitonin 0.11 and slightly up today at 0.16. - Respiratory virus PCR positive for Metapneumovirus. Legionella and strep pneumo urine Ag negative - Continue supplemental oxygen to maintain O2 sats 88-0% - Continue ceftriaxone and azithromycin 06/07/16. - Received 1L of normal saline in the ED, Lactic acid 1.9 - Urine culture, preliminary result was negative. Now growing Enterobacter cloacae sensitive to Ceftriaxone. - Blood cultures with no growth thus far - Continue ceftriaxone and azithromycin 06/07/16. - Continue Benzonatate 100 mg 3 times a day as needed for cough. - Continue Guaifenesin 1200 mg every 12 hours x 7 days. - Continue pulmonary toilet including: Incentive spirometry, Acapella, CPT, and nebs. 3. Urinary tract infection. Present on admission. Active - UA with nitrites, leukocyte esterase, WBC 11-50, bacteria in the setting of patient with suprapubic catheter - Urine culture, as above. - Antibiotics, as above 4. Probable reactive airway disease, present on admission. Active. - Continue prednisone 40 mg daily. Consider slow taper once wheezing has improved. - Patient is diffusely wheezing throughout all lung kelly. - He denies history of asthma or COPD. - Highly recommend PFTs as an outpatient. 5. Mild thrombocytopenia, unknown acuity, present on admission. Resolved. - Continue to monitor with CBC daily. Chronic problems: Paraplegia, chronic. - Continue to encourage ambulation with physical therapy and nursing staff. Diabetes mellitus type II, non-insulin using. Chronic. - HbA1c 6.2%. - Continue bedside glucose monitoring. - Held metformin. - Continue healthy/carbohydrate consistent diet. - Continue low-dose correctional scale insulin Low dose correctional insulin Lispro CAD, chronic. - Continue home metoprolol tartrate 50 mg twice a day and atorvastatin 5 mg daily at bedtime. Hypertension, chronic. - Continue home metoprolol tartrate 50 mg twice daily, amlodipine 5 mg daily and enalapril 5 mg twice a day Chronic pain with opiate habituation. - Continue home dosing Hydrocodone 7.5 mg 3 times a day as needed for pain. Acetaminophen-fever/headache/mild/moderate pain Antiemetics, as needed Bowel regimen, as needed. Disposition: Patient will likely need 1-2 more days of inpatient monitoring for IV fluids and antibiotics. . GI Prophylaxis: Not indicated VTE Prophylaxis: Sub-Q Heparin (Unfractionated) VTE Mechanical Devices: Intermittant Pneumatic CD Resuscitation Status: DNR/DNI:Do Not Resuscitate/Intubate Attending Statement The patient was seen and examined together with Dr. Ward on 06-09-16 and I agree with the history, exam and plan as outlined in the note above. Berta Ward DO Jun 10, 2016 00:26 Kate Casillas MD Jun 10, 2016 17:06
[2016-06-10 04:21] LABS: BASOPHILS % (AUTO) 0.3 % (0-3); EOSINOPHILS % (AUTO) 0.5 % (0-5); MONOCYTES % (AUTO) 8.8 % (4-12); Mean Corpuscular Hemoglobin 30.5 pg (27.0-35.0); Mean Corpuscular Volume 99.2 fL (81-100); NEUTROPHILS % (AUTO) 60.9 % (40-74); Platelet Count 175 bil/L (150-400)
[2016-06-10] MEDS: Albuterol 2.5 mg/3 mL Inhalation Solution NEB SCH ×3 (04:30→12:05)
--- NOTE | 2016-06-10 06:42 | NUR ---
Pain P: Pt c/o back pain 410 at HS. I: Pt medicated with schedule [place] 7.5-325mg. E: No further c/o pain all night.
[2016-06-10] MEDS: Insulin LISPRO 300 Unit/3 mL Inj SUBQ SCH (08:00)
[2016-06-10] MEDS: guaiFENesin 600 mg ER12 Tablet PO SCH (08:38)
[2016-06-10] MEDS: predniSONE 20 mg Tablet PO SCH (08:39)
[2016-06-10] MEDS: HYDROcodone-APAP 7.5-325 mg Tablet PO SCH (08:39)
[2016-06-10] MEDS: Heparin 5,000 Unit/mL Inj SUBQ SCH (08:39)
[2016-06-10] MEDS: cefTRIAXone Inj 2,000 MG in IV Premix 1 EACH IV SCH (08:47)
--- NOTE | 2016-06-10 12:00 | PCM.DIMED ---
Alyssa Figueroa DO 06/10/16 1120: Discharge Instructions Date of Service Jun 10, 2016 Dates of Hospitalization Jun 06, 2016 at 21:57 Discharge Diagnosis Discharge Diagnosis 1. Sepsis 2. Community acquired pneumonia 3. Urinary tract infection 4. Probable reactive airway disease 5. Mild thrombocytopenia Chronic problems: 1. Paraplegia 2. Diabetes mellitus type II, non-insulin using. 3. Coronary artery disease 4. Hypertension 5. Chronic pain Diet Heart Healthy, Diabetic Activity Home Health Phyical Therapy Call your provider Fever or Chills, Shortness of breath, Chest pain, Weakness (unilateral) Patient Instructions It is important that you follow up with your primary care provider within one week to discuss medications and recent hospitalization. Continue with home health services and physical therapy at [facility] with [facility]. You are being discharged on some new medications for your breathing , use the inhalers and nebulizer as prescribed. Take the oral prednisone once daily (40mg) until your follow up appointment with your primary care provider. Follow-up plan MARY [facility] [employer] [address] [place] [address] [phone] Follow-up Provider: Denilson Swann PA-C Follow-up with PCP in: 1 week Kate Casillas MD 06/12/16 1636: Discharge Instructions Attending's Statement The patient was seen and examined together with Dr. Fgiueroa on 06-11-16 and I agree with the history, exam and plan as outlined in the note above. Alyssa Figueroa DO Jun 10, 2016 11:20 Kate Casillas MD Jun 12, 2016 16:36
[2016-06-10] MEDS ORDERED: ALBU8.5H2 INHALATION (12:05)
[2016-06-10] MEDS ORDERED: PRE20 PO (12:05)
[2016-06-10] MEDS ORDERED: IPRA3AMP IH (12:05)
[2016-06-10] MEDS ORDERED: NEBU-145 MC (12:09)
--- NOTE | 2016-06-10 12:19 | NUR ---
Social Work Note: Discharge Data& Assessment: EMR reviewed. Per pt is medically ready for discharge. Yahir Grant is a 81 year old male admitted on 06/06/2016 for pneumonia. Per pt is medically improved and ready for discharge. ready for discharge. CHEOL confirmed with Jeff RN ([phone]) at [facility] that pt is able to return as long as he is back to his baseline. DC paperwork and PT evaluations faxed to Jeff LEROY. [facility] RN number provided to [facility] RN for hand off. Pt does not require 02 at time of discharge. Pt progressed with PT, was able to walk over 75ft and cleared to go [facility]. Pt is open with [facility] for monthly catheter care. CHELO contacted [facility] to notify them of [facility] discharge [facility] and added PT. [facility] has an answering service due to the holiday, CHELO left a message for the regular Liaison and RN. Paperwork also faxed to their office just in case. Pt is prescribed a nebulizer, CHELO confirmed with [facility] that they have nebulizers there with new tubing for pt to use. notified. CHELO met with pt and pt family at bedside to confirm discharge plan and assess for any unmet needs. Pt son and to transport him home to [facility]. Pt and pt family deny any other needs. No other discharge needs identified. Plan:Per pt is medically ready to discharge home to [facility] via POV with [facility] with PT added. Pt son and to transport him home to [facility]. Pt and pt family deny any other needs. No other discharge needs identified. All updated and agreeable to plan. KATIE Dawkins Addendum: 06/10/16 at 1318 by BC VALVERDE CHELO was able to confirm home health resumption with PT added to his originally services with [facility] RN. Anticipated PT services to begin on 06/12/2016. All updated and agreeable to plan. KATIE Dawkins
--- NOTE | 2016-06-10 13:21 | NUR ---
discharge of patient Reviewed discharge instructions with patient and patient's . Both verbalized understanding. Pt discharged via wheelchair with prescriptions and instructions. IV and Telemetry previously discontinued. Pt left hospital with and son to [facility] living side.
--- NOTE | 2016-06-10 18:39 | PCM.DC.MED ---
Discharge Summary Date of Service Jun 10, 2016 Dates of Hospitalization Date of Hospital Admission Jun 06, 2016 at 21:57 Date of Discharge: Jun 10, 2016 Providers: Admitting Physician: Abena Ramos MD Primary Care Physician: Denilson Swann PA-C Attending Physician: Abena Ramos MD Diagnosis at Time of Discharge Diagnosis at Time of Discharge 1. Sepsis 2. Community acquired pneumonia 3. Urinary tract infection 4. Probable reactive airway disease 5. Mild thrombocytopenia Chronic problems: 1. Paraplegia 2. Diabetes mellitus type II, non-insulin using. 3. Coronary artery disease 4. Hypertension 5. Chronic pain Procedures XRay, CTs & MRIs X-RAY CHEST ONE VIEW, PORTABLE IMPRESSION: Left lower lobe infiltrate suspicious for pneumonia. Tortuous aneurysmal aorta. Dictated and approved by: Ravinder Torres M.D. on 06/06/2016 at 20:56 . ECG 12 Lead Sinus rhythm, tachycardia with heart rate 102, prolonged MD interval, no acute ischemic changes. Brief History Per admission H&P on 06/07/16. Cristobal Chiang DO Patient is a 81-year-old male with hypertension, type 2 diabetes, CAD s/p CABG, dyslipidemia and AAA presenting with dyspnea, cough and fever. Patient is accompanied at bedside by his family. He and his are residents at [facility]. Patient reports onset of shortness of breath two days ago that was accompanied by a productive cough with yellow/green sputum. Patient states he had worsening shortness of breath with wheezing, and initially did not have a fever but at 4PM today he started experiencing uncontrollable shaking chills with a recorded temperature of 103.2F. This prompted him to be brought in by his family for further evaluation. Patient says he tried cough syrup and Mucinex. He also endorses some rhinorrhea but otherwise denies chest pain, nausea, emesis, lightheadedness, dizziness, abdominal pain. 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 At time of visit, the patient reports his breathing is a little improved. Patient denies supplemental oxygen use at home. He reports being up to date with pneumonia vaccines. In the ED, vitals: temp 39, HR 97, RR 20 satting 97% on 6L. Labs: WBC 8.2, platelets 135. BUN 14, creatinine 0.66. Lactic acid 1.9. Troponin<0.010. Influenza screen negative. Chest x-ray reads left lower lobe infiltrate. Patient was given levofloxacin and ceftriaxone in the ED. Hospital Course Patient is a 81-year-old male with hypertension, type 2 diabetes, CAD s/p CABG, dyslipidemia and AAA presenting with dyspnea, cough and fever and admitted for severe sepsis secondary to pneumonia and urinary tract infection. 1. Severe sepsis. Present on admission. Resolved. -Met criteria on admission with temp of 39, tachycardia (HR 102), tachypnea (RR 36), with pulmonary and genitourinary source. -Received 1L of normal saline in the ED, Lactic acid wnl on admission. -Urine culture, grew Enterobacter cloacae. -Blood cultures with no growth -Completed four days of ceftriaxone/azithromycin. -Pneumonia most likely viral, procalcitonin essentially negative, strep pneumo/ legionella antigens negative. -Antibiotics covered for UTI. 2. Community acquired pneumonia. Present on admission. Resolved -CXR with left lower lobe infiltrate. Likely viral, respiratory virus PCR positive for Metapneumovirus. -Procalcitonin essentially negative, cultures and urine antigens negative, no leukocytosis. -Respiratory virus PCR positive for Metapneumovirus. Completed four days of antibiotics. -Pt received Ceftriaxone and levofloxacin given in the ED -Pt received supplemental oxygen to maintain O2 sats>90% 3. Probable reactive airway disease, present on admission. Active. - Pt denies history of asthma or COPD. Diffuse wheezing in all lung kelly. - Does not use inhalers at home. Not on home oxygen. - Pt started on and discharged on oral prednisone 40 mg daily. Advised to follow up with PCP following discharge. - Highly recommend PFTs as an outpatient. 4. Urinary tract infection. Present on admission.Resolved -UA with nitrites, leukocyte esterase, WBC 11-50, bacteria in the setting of patient with suprapubic catheter -Urine culture, as above. -Antibiotics, as above 5. Mild thrombocytopenia, unknown acuity. Present on admission. Resolved. -Monitored with CBC 6. Type 2 diabetes mellitus, chronic. Present on admission -HbA1c 6.2 (06/06/16) -Held Metformin -Monitor serum glucose, ACHS. -Low dose correctional insulin Lispro, as needed. 7. CAD, chronic. Present on admission -Continued home statin, metoprolol 8. Hypertension, chronic. Present on admission -Continued home metoprolol, amlodipine, enalapril 9. Chronic pain, present on admission. -Continued home dosing Hydrocodone 7.5mg po tid. Exam Vital Signs (Last) Date Time Temp Pulse Resp B/P Pulse Ox O2 Delivery O2 Flow Rate FiO2 06/10/16 12:05 89 18 87 OxyMask 4.00 06/10/16 11:45 36.8 125/89 Exam General: Well-developed, Obese gentleman, appears comfortable. In no acute distress. Appropriately interactive. HEENT: Normocephalic, atraumatic. External ears without defect. PERRLA. Anicteric sclerae. Moist mucosa. Neck: Supple. No jugular venous distension appreciated. No lymphadenopathy or thyromegaly. Cardiovascular: Regular rate and rhythm with no murmurs, rubs, or gallops appreciated Pulmonary: Symmetric chest rise with diffuse wheezes in all lung kelly.Normal respiratory effort Abdomen: Bowel tones present. Soft, obese, nontender, nondistended. No hepatomegaly or masses appreciated. Genitourinary: Suprapubic catheter with Herrera bag in place, no surrounding erythema or skin breakdown. Extremities: No edema, clubbing, cyanosis, or lymphadenopathy appreciated. Psychiatric: Alert and oriented to person, place, and time. Normal mood and affect Test 06/06/16 19:50 06/06/16 21:30 06/07/16 03:50 06/08/16 05:00 Hemoglobin A1c 6.2% (4.8-5.6) Lactic Acid Level 1.9mmol/L (0.4-2.0) Troponin T < 0.010ug/L (0.0-0.011) Urine Color Yellow (YELLOW) Urine Appearance Cloudy (CLEAR,HAZY) Urine pH 5.0 (5.0-8.0) Urine Specific Cameron 1.028 (1.003-1.035) Urine Protein 30mg/dL (NEG,TRACE) Urine Glucose (UA) Negativemg/dL (NEGATIVE) Urine Ketones Tracemg/dL (NEGATIVE) Urine Occult Blood Small (NEGATIVE) Urine Nitrite Positive (NEGATIVE) Urine Bilirubin Negative (NEGATIVE) Urine Urobilinogen Normalmg/dL (NORMAL) Urine Leukocyte Esterase Trace (NEGATIVE) Urine RBC 3-10/hpf (0-2) Urine WBC 11-50/hpf (0-5) Urine Epithelial Cells Occasional/hpf (NONE-MOD) Urine Crystals Amorphous urates (NONE Urine Bacteria Moderate/hpf (NONE-FEW) Urine Hyaline Casts None/lpf (NONE) Urine Granular Casts None seen (NONE SEEN) Urine Waxy Casts None seen (NONE SEEN) Urine Red Blood Cell Casts None seen (NONE SEEN) Urine White Blood Cell Casts None seen (NONE SEEN) Urine Mucus Present (None Seen) Urine Trichomonas None seen (NONE SEEN) Urine Yeast None (NONE SEEN) Urinalysis Comment None Urine Culture Reflexed Indicated Urine Legionella pneumophilia Ag Negative (Negative) Magnesium Level 2.3mg/dL (1.6-2.6) Procalcitonin 0.16ng/mL (See Comment) Test 06/09/16 03:50 06/10/16 04:00 Total Bilirubin 0.2mg/dL (0.0-1.2) Aspartate Amino Transf (AST/SGOT) 12U/L (0-50) Alanine Aminotransferase (ALT/SGPT) 10U/L (0-44) Alkaline Phosphatase 41U/L (25-160) Total Protein 5.7g/dL (6.4-8.4) Albumin 3.2g/dL (3.4-5.0) White Blood Count 5.9th/mm3 (3.8-10.1) Red Blood Count 3.90mil/mm3 (4.40-5.80) Hemoglobin 11.9g/dL (13.8-17.2) Hematocrit 38.7% (41.0-50.0) Mean Corpuscular Volume 99.2fL (81-100) Mean Corpuscular Hemoglobin 30.5pg (27.0-35.0) Mean Corpuscular Hemoglobin Concent 30.7% (32.0-37.0) Red Cell Distribution Width 13.4% (12.3-15.4) Platelet Count 175bil/L (150-400) Neutrophils (%) (Auto) 60.9% (40-74) Lymphocytes (%) (Auto) 29.2% (14-46) Monocytes (%) (Auto) 8.8% (4-12) Eosinophils (%) (Auto) 0.5% (0-5) Basophils (%) (Auto) 0.3% (0-3) Sodium Level 142mEq/L (134-144) Potassium Level 4.5mEq/L (3.5-5.2) Chloride Level 100mEq/L (97-108) Carbon Dioxide Level 35mmol/L (18-29) Blood Urea Nitrogen 25mg/dL (8-27) Creatinine 0.73mg/dL (0.76-1.27) Estimat Glomerular Filtration Rate 110mL/min (>59) Glucose Level 119mg/dL (60-99) Calcium Level 9.2mg/dL (8.5-10.1) Microbiology Results Blood cultures 2 negative. Influenza screen negative. Respiratory viral PCR positive for meta-pneumo virus. Urine culture positive for Enterobacter cloaca resistant to Augmentin and cefuroxime. Strep pneumoniae and legionella urine antigens negative. . Discharge Medications Discharge Medications Albuterol HFA (Proair HFA) 8.5 Gm Hfa.aer.ad 2 PUFFS INHALATION Q4H Prescribed by: MARKELL JO DO Amlodipine (Amlodipine) 5 Mg Tablet 5 MG PO DAILY (Reported) Enalapril Maleate (Enalapril Maleate) 5 Mg Tablet 5 MG PO BID (Reported) Hydrocodone-Acetaminophen 7.5-325 mg (Hydrocodone-Acetaminophen 7.5-325 mg) 1 Each Tablet 1 TAB PO TID (Reported) Ipratropium/Albuterol Sulfate (Iprat-Albut 0.5-3(2.5) mg/3 mL Inhalant Soln) 3 Ml Ampul.neb 3 ML IH Q6 Prescribed by: MARKELL JO DO Metformin (Metformin) 500 Mg Tablet 1,000 MG PO BID (Reported) Metoprolol Tartrate (Metoprolol Tartrate) 50 Mg Tablet 50 MG PO BID (Reported) Pravastatin (Pravastatin) 20 Mg Tablet 20 MG PO HS (Reported) Prednisone (PredniSONE) 20 Mg Tablet 40 MG PO DAILY Prescribed by: MARKELL JO DO Trazodone (Trazodone) 100 Mg Tablet 100 MG PO HS (Reported) Miscellaneous Medications Cholecalciferol (Vitamin D3) (Vitamin D3) 1,000 Unit Tab.chew 1,000 UNIT PO ( Reported) Cranberry Extract (Cranberry) 500 Mg Tablet 5,000 MG PO (Reported) Krill/Om-3/Dha/Epa/Phospho/Ast (Megared [place]-3 Krill Oil Sfgl) 500-115-30 Capsule 1 EACH PO (Reported) Milk Thistle (Milk Thistle) 500 Mg Capsule 1,000 MG PO (Reported) Multivit-Min/FA/Lutein/Zeaxant (Macular Vitamin Tablet) 1 Each Tablet 1 EACH PO (Reported) Multivitamin (Multivitamins) 1 Each Capsule 1 EACH PO (Reported) Ubidecarenone (Co Q-10) 100 Mg Capsule 100 MG PO (Reported) Durable Medical Equipment Nebulizer (Aeroneb Go Nebuliser) 1 Each Each 1 EACH MC (DME) Prescribed by: MARKELL JO DO Followup Plan Follow-up plan M[facility] [employer] [address] [place] [address] [phone] Discharge Diet: Heart Healthy, Diabetic Discharge Activity: Home Health Phyical Therapy Patient Instructions It is important that you follow up with your primary care provider within one week to discuss medications and recent hospitalization. Continue with home health services and physical therapy at [facility] with [facility]. You are being discharged on some new medications for your breathing , use the inhalers and nebulizer as prescribed. Take the oral prednisone once daily (40mg) until your follow up appointment with your primary care provider. Follow-up Provider: Denilson Swann PA-C Follow-up with PCP in: 1 week Attending Statement The patient was seen and examined together with Dr. Jo on 06-11-16 and I agree with the history, exam and plan as outlined in the note above. Markell Jo DO Jun 10, 2016 18:39 Kate Casillas MD Jun 12, 2016 16:37
[2016-10-17] MEDS ORDERED: VIT1TABL25 PO (12:14)
[2016-10-18] MEDS ORDERED: ASPI-973 PO (09:25)
== END 2016-06-10 13:19 | DRG 871 ==
LOC: SED 19:33 → PCC 21:57
PROVIDERS: ADMIT Specialist; ATTEND Specialist
DX: A41.9 Sepsis, unspecified organism (principal); J18.9 Pneumonia, unspecified organism; N39.0 Urinary tract infection, site not specified; G82.22 Paraplegia, incomplete; R65.20 Severe sepsis without septic shock; J45.909 Unspecified asthma, uncomplicated; E11.9 Type 2 diabetes mellitus without complications; I25.10 Atherosclerotic heart disease of native coronary artery without angina pectoris; I10 Essential (primary) hypertension; D69.6 Thrombocytopenia, unspecified; G89.29 Other chronic pain; Z66 Do not resuscitate; Z95.1 Presence of aortocoronary bypass graft; Z98.61 Coronary angioplasty status; Z85.46 Personal history of malignant neoplasm of prostate

== ENCOUNTER 2016-10-23 05:38 | Day surgery (SDC) | payer MEDICARE ==
--- NOTE | 2016-10-18 16:30 | PCM.ANEPRE ---
Anesthesia Pre-Op Review Reason for Review: COMORBIDITIES Anesthesia Recommendations: Proceed with Procedure Additional Comments Proceed with low risk surgery, recommend MAC with local or low invasive anesthetic plan. Loco Sánchez Chart Reviewed by: Loco Davenport MD October 18, 2016 16:30
[~2016-10-23] VITALS: Ht 175.3 cm; Wt 122.0 kg
[~2016-10-23 05:38] MED LIST: ALBU8.5H2 INHALATION; AMLO5TAB2 PO; ASPI-973 PO; CHOL10008 PO; CRAN500T2 PO; ENAL5TAB PO; HYDR-3825 PO; IPRA3AMP IH; KRIL1CAP22 PO; Lactated Ringer's 1,000 ML IV SCH; METF500T4 PO; METO50TA3 PO; MILK500C PO; MULT1CAP33 PO; PRAV20TA2 PO; TRAZ-118 PO; UBID100C25 PO; VIT1TABL25 PO
[2016-10-23] MEDS ORDERED: fentaNYL-PF 50 mCg/mL 2 mL Inj ONE (05:39)
[2016-10-23] MEDS ORDERED: Propofol 10,000 mCg/mL 20 mL Inj ONE (05:39)
[2016-10-23] MEDS ORDERED: CeFAZolin Inj 3 GM in IV Premix 1 EACH IV ONE (06:00)
[2016-10-23] MEDS ORDERED: Lactated Ringer's 1,000 ML IV ONE (06:28)
[2016-10-23 06:29] VITALS: BP 126/62; PULSE 72; RESP 24; O2SAT 91
--- NOTE | 2016-10-23 06:54 | PCM.HPANE ---
Patient Data Surgeon Admitting Provider: Attending Provider:Diallo Walker MD Primary Care Physician:Mal Marcum DO Other Provider:[place] Cm Anesthesia Reason for Visit Left Index Finger Basal Cell Carcinoma Ht/WT & BMI Height (Feet): 5 Height (Inches): 9.00 Weight (Kilograms): 122 Body Mass Index 39.00 Allergies Coded Allergies: No Known Drug Allergies (Verified Allergy, Unknown, 10/17/16) Past Anesthesia History Anesthesia History: Denies:: Anesthesia Reactions, Malignant Hyperthermia Diabetes History Hx Diabetes?: Yes (TYPE II) Type of Diabetes: Type II Glycemic Control: Oral Medication Current Bedside Blood Glucose: 110 MRSA MRSA: Yes Medications Hypertension Medication: Yes (AMLODIPINE,ENALAPRIL) Home Meds Incl Beta Padmaja: Yes Date Beta Padmaja Taken: October 23, 2016 Time Beta Padmaja Taken: 043 Reported Medications Aspirin 81 Mg Ltqygt95 Mg PO DAILY Ref 0 10/18/16 Vit A,C & E/Lutein/Minerals (Ocuvite with Lutein Tablet)1 Each Tablet1 Each PO DAILY 10/17/16 Cranberry Extract (Cranberry)500 Mg Eraufx206 Mg PO 06/06/16 Milk Thistle 500 Mg Capsule1,000 Mg PO 06/06/16 Cholecalciferol (Vitamin D3) (Vitamin D3)1,000 Unit Tab.mosj308 Unit PO 06/06/16 Krill/Om-3/Dha/Epa/Phospho/Ast (Megared [place]-3 Krill Oil Sfgl)500-115-30 Capsule1 Each PO 06/06/16 Ubidecarenone (Co Q-10)100 Mg Ypqlrio123 Mg PO DAILY 06/06/16 Hydrocodone-Acetaminophen 7.5-325 mg 1 Each Tablet1 Tab PO TID #90 06/06/16 Trazodone 100 Mg Njgkwz884 Mg PO HS Ref 0 06/06/16 Pravastatin 20 Mg Bolkah25 Mg PO HS Ref 0 06/06/16 Amlodipine 5 Mg Tablet5 Mg PO DAILY Ref 0 06/06/16 Metoprolol Tartrate 50 Mg Ptnjof92 Mg PO BID 30 Days Ref 0 06/06/16 Enalapril Maleate 5 Mg Tablet5 Mg PO BID Ref 0 06/06/16 Metformin 500 Mg Tablet1,000 Mg PO BID Ref 0 06/06/16 Discontinued Reported Medications Multivitamin (Multivitamins)1 Each Capsule1 Each PO 06/06/16 Discontinued Scripts Ipratropium/Albuterol Sulfate (Iprat-Albut 0.5-3(2.5) mg/3 mL Inhalant Soln)3 Ml Ampul.neb3 Ml IH Q6 SHORTNESS OF BREATH 10 Days Ref 0 Prov:Alyssa Figueroa DO 06/10/16 Albuterol HFA (Proair HFA)8.5 Gm Hfa.aer.ad2 Puffs INHALATION Q4H SHORTNESS OF BREATH #1 INHALER Prov:Alyssa Figueroa DO 06/10/16 Nebulizer (Aeroneb Go Nebuliser)1 Each Each #1 Each Mc Prov:Alyssa Figueroa DO 06/10/16 Prednisone (PredniSONE)20 Mg Zlsahl79 Mg PO DAILY #10 TABLET Ref 0 Prov:Alyssa Figueroa DO 06/10/16 History History of ENT Problems?: Yes HEENT History: Positive for:: Cataracts (S/P B/L EXTRACTIONS) Hearing Problem Denies:: Dysphagia Glaucoma (HX MACULAR DEGENERATION) Sinus Problem Denture Type: None Teeth Condition: Within Normal Limits Hx of Heart Problems?: Yes Cardiovascular History: Positive for:: Abdominal Aortic Aneurism (S/P THORACIC AORTIC STENT/RPR) Cardiac Surgery (OLD RECORDS INDICATE CABG, BUT DENIES-AAA RPR WAS ONLY "HEART" SURG.) Coronary Artery Disease Hypertension (HYPERLIPIDEMIA) Peripheral Vascular (LE VARICOSITIES) Denies:: Chest Pain Congestive Heart Failure Edema Heart Murmur Irregular Heartbeat Pacemaker Thrombophlebitis Hx of Respiratory Problem?: No Respiratory History: Positive for:: Pneumonia (HOSP 05/2016 W/ PNEUMONIA/ SEPSIS) Use of C-PAP Machine (MARKY+ HAS NOT USED CPAP FOR SEVERAL YEARS-FEELS HE DOES NOT NEED IT) Denies:: Asthma COPD Chest Surgery Dyspnea Emphysema Hemoptysis Tuberculosis Hx Neurologic Problems?: Yes Neurological History: Denies:: Alzheimer's Disease CVA Dementia Dizziness Headaches Parkinson's Disease Seizures Other Neurological Pertinent: "PARAPLEGIA"-CAN WALK W/ WALKER, BUT STRUGGLES. SPINAL CORD INJURY R/T PLCMT OF THORACIC AORTIC STENT C/OF LE NEUROPATHY Hx of GI Problems?: Yes Other GI Pertinent History: HX FECAL INCONTINENCE,CONSTIPATION S/P APPY Hx of Problems?: Yes Genitourinary History: Positive for:: Kidney Stones (S/P LITHOTRIPSY) Urinary Tract Infection (HOSP 05/2016 W/ SEPSIS) Male Hx: Positive for:: Prostate Problems (S/P PROSTATIC SEED IMPLANT FOR CA 2000) Denies:: Scrotal Mass Testicular Surgery Skin History: Positive for:: History Skin Disorders? (S/P EXC MULT SKIN CA'S LT INDEX FINGER BASAL CELL CA=CURRENT PROBLEM) Denies:: Pressure Ulcers Hx Musculoskeletal Problems?: Yes Musculoskeletal History: Positive for:: Degenerative Joint Musculoskeletal Trauma Osteoarthritis (KNEES S/P STEROID INJ RT KNEE 10/15/16) Denies:: Back Injury (C/OF CHRONIC LOWER BACK PAIN) Joint Replacement Hx of Psycho/Social Problems?: No Hx Surgeries?: Yes (AAA STENT/RPR,SUPRAPUBIC CATH,SEED IMPLANT APPY,JASMYNE, SPINE SURG.,CATARACT,) Hx Any Other Health Problems?: Yes Other History: Positive for:: Cancer (PROSTATE, MULT SQUAMOUS CELL & BASAL CELL SKIN CA'S) Hospitalization (05/2016 PNEUMONIA/SEPSIS) Denies:: Endocrine Disease Thyroid Disease History Blood Transfusions: Denies:: Blood Transfuse Reaction Blood Transfusions Hx Diabetes: Yes (TYPE II)Bedside Blood Glucose: 110 Hx Alcohol Use: NoHx Substance Use: No Smoking Status: Unknown if Ever Smoker Have You Smoked inLast 12 mo: No Stop/Bang S-Snoring: Do You Snore Loudly: No T-Tired: feel tired, fatigued: Yes O-Obsered: Observed not breath: No P-Blood Pressure: treated: Yes B- Body Mass Index > 35 kg/m2: Yes A- Age over 50: Yes N- Neck Large Circumference: Yes G- Gender Male: Yes MARKY Total Score: 6 Risk Assessment Category Category 1A: Patient has history of documented sleep apnea, and HAS NOT received any narcotic, sedative or anesthesia administration during this stay. Category 1B: Patient has history of documented sleep apnea, and HAS received any narcotic , sedative or anesthesia administration during this stay Category 2: Patient has SUSPECTED Obstructive Sleep Apnea, and HAS received any narcotic , sedative or anesthesia administration during this stay. Category 3: Patient has SUSPECTED Obstructive Sleep Apnea and HAS NOT received narcotic, sedative or anesthesia administration during this stay. Category 4: Outpatient in Procedural Areas with known sleep apnea or who screen positive for High Risk via the STOP/BANG questionnaire. Exam Exam Vital Signs Vital Signs Date Time Temp Pulse Resp B/P Pulse Ox O2 Delivery O2 Flow Rate FiO2 10/23/16 06:29 35.4 72 24 126/62 91 Room Air General Appearance: Alert, Oriented X3, Cooperative, No Acute Distress HEENT/AIRWAY: MP 2, Neck Movement (thick, 30% expected ROM), Mouth Opening ( Moderate) Lungs: Clear to Auscultation Heart: Exam Unremarkable Meds/Labs/Diagnostics Admission Meds Current Medications Lactated Ringer's (Lr) 1,000 ml @ ud STK-MED ONCE IV Last administered on 10/23t 06:28; Start 10/23/16 at 06:28; Stop 10/23/16 at 06:29; Status DC Bedside Blood Glucose: 110 Plan Impression Patient chart reviewed, patient interviewed and anesthestic plan with risks, benefits, and alternatives discussed, and informed consent obtained. ASA Physical Status: ASA3 Severe Disease Anesthetic Plan: MAC Bene/Risks/Altern/Consents: Yes HP Complete Prior to Induction: Yes Other RA SPO2 = 91%. Dr Araujo will use local for the procedure. Ulises Vargas MD October 23, 2016 06:54
[2016-10-23] MEDS ORDERED: Lactated Ringer's 1,000 ML IV SCH (07:14)
[2016-10-23] MEDS ORDERED: Lactated Ringer's 500 ML IV PRN (07:14)
[2016-10-23] MEDS ORDERED: Ondansetron 2 mg/mL 2 mL Inj IVPUSH PRN (07:15)
[2016-10-23] MEDS ORDERED: Phenylephrine 10,000 mCg/mL Inj IVPUSH PRN (07:15)
[2016-10-23] MEDS ORDERED: MetoCLOpramide 5 mg/mL 2 mL Inj IVPUSH PRN (07:15)
[2016-10-23] MEDS ORDERED: EPHEDrine Sulfate 50 mg/mL Inj IVPUSH PRN (07:15)
[2016-10-23] MEDS ORDERED: fentaNYL-PF 50 mCg/mL 2 mL Inj IVPUSH PRN (07:15)
[2016-10-23] MEDS ORDERED: Dexamethasone 4 mg/mL Inj IVPUSH PRN (07:15)
[2016-10-23] MEDS ORDERED: HYDROmorphone 1 mg/mL Inj IVPUSH PRN (07:15)
[2016-10-23] MEDS ORDERED: Bupivacaine-MPF 0.25% 30 mL Inj INFILTRATE ONE (07:55)
[2016-10-23 08:43] VITALS: BP 110/62; PULSE 83; RESP 20; O2SAT 93
--- NOTE | 2016-10-23 09:02 | PCM.ANEP1 ---
Post Anesthesia Phase 1 PACU Phase 1 Assessment Vital Signs Vital Signs Date Time Temp Pulse Resp B/P Pulse Ox O2 Delivery O2 Flow Rate FiO2 10/23/16 08:43 36.8 83 20 110/62 93 Room Air 10/23/16 06:29 35.4 72 24 126/62 91 Room Air Anesthetic Administered: MAC Level of Alertness: Awake, talking GARCIA's with Equal Strength: Yes Pain: No Nausea or Vomiting: No Oxygen Delivery: Room Air Lungs: Normal Air Movement Complications: No Follow up Care: No Ulises Vargas MD October 23, 2016 09:02
[2016-10-23 09:22] VITALS: BP 103/60; PULSE 69; RESP 16; O2SAT 90
--- NOTE | 2016-10-29 13:45 | OP ---
[address] [address] OPERATIVE REPORT PATIENT: TARIQ TAMEZ : 1935 MR#: [id number] ADMIT: 10/23/2016 JOB ID: [id number] DATE OF SURGERY: 10/23/2016 PREOPERATIVE DIAGNOSIS(ES): Left index finger basal cell carcinoma. POSTOPERATIVE DIAGNOSIS(ES): Left index finger basal cell carcinoma. PROCEDURES: 1. Excision of left index finger basal cell carcinoma. Diameter excised 1 cm. 2. Closure of a left index finger defect with a bilobed flap (local tissue rearrangement) area of local tissue rearranged 2 sq cm. SURGEON: Diallo Walker M.D. PROFESSIONAL DRIVER: None. ANESTHESIA: MAC with local. COMPLICATIONS: None apparent. SPECIMEN: Left index finger basal cell carcinoma to pathology with frozen section demonstrating negative margins. ESTIMATED BLOOD LOSS: Minimal. INDICATIONS FOR PROCEDURE: This is a 80-year-old female patient with a biopsy-proven basal cell carcinoma of the left index finger. At this point, complete excision and reconstruction of this area is indicated. PROCEDURE AND FINDINGS: The patient was identified in the preoperative area. Surgical site was marked. The patient was then taken back to the operating room and placed supine on the operating table. Appropriate time-outs were taken. MAC was induced smoothly. The patient was then prepped and draped in the usual sterile manner. Local anesthesia was then infiltrated to the surgical site in a digital block using lidocaine and Marcaine. At this point, it was noted that patient has a healed biopsy site on the dorsum of the index finger over the middle phalanx and near midline. Using a marker, an incision was designed around the scar with a millimeter or so of margin. Incision was then made with a #15 blade down through the skin into the underlying subcutaneous tissue. The skin was then resected with a small cuff of subcutaneous tissue on its underside. It was then passed off to the pathologist as a specimen with a short stitch marking distal and long stitch marking ulnar. Frozen section demonstrated negative surgical margins. At this point, given the size of the defect and the location, I elected to perform local tissue rearrangement, as opposed to placing a full-thickness skin graft. A bilobed flap was then designed to rotate the skin in from the ulnar aspect of the index finger near the distal aspect of the proximal phalanx and over the PIP joint. Incision was then made along the designed incision. The flap was then elevated off of the underlying subcutaneous tissue. I also elevated the skin about the defect to allow for mobilization. Once this has been done, the flap was rotated into the defect. The excess flap was excised. The incisions were then reapproximated using several 5-0 nylon horizontal mattress sutures. The patient tolerated the procedure well. Needle count, sponge count, instrument counts were correct at end of the procedure. The patient was transported to recovery in stable condition.
== END 2016-10-23 23:59 | disposition home or self-care (01) ==
LOC: SAS 05:38
PROVIDERS: ATTEND Plastic Surgery
DX: C44.619 Basal cell carcinoma of skin of left upper limb, including shoulder (principal); I10 Essential (primary) hypertension; I25.810 Atherosclerosis of coronary artery bypass graft(s) without angina pectoris; I71.4 Abdominal aortic aneurysm, without rupture; E78.5 Hyperlipidemia, unspecified; I73.9 Peripheral vascular disease, unspecified; E11.9 Type 2 diabetes mellitus without complications; G47.33 Obstructive sleep apnea (adult) (pediatric); E66.01 Morbid (severe) obesity due to excess calories; M19.90 Unspecified osteoarthritis, unspecified site; Z79.84 Long term (current) use of oral hypoglycemic drugs; Z68.41 Body mass index [BMI] 40.0-44.9, adult; Z85.46 Personal history of malignant neoplasm of prostate; Z87.442 Personal history of urinary calculi
CPT/HCPCS: 11621; 14040; J0690; J2250; J3010; J7120

== ENCOUNTER 2017-01-22 10:33 | Emergency (ER) | payer MEDICARE ==
[~2017-01-22] VITALS: Ht 175.3 cm; Wt 118.6 kg
[~2017-01-22 10:33] MED LIST changes: -ALBU8.5H2 INHALATION; -IPRA3AMP IH; -Lactated Ringer's 1,000 ML IV SCH; -MULT1CAP33 PO
[2017-01-22 10:36] VITALS: BP 143/81; PULSE 76; RESP 16; O2SAT 95
--- NOTE | 2017-01-22 10:53 | ED.REPORT ---
HPI-General Illness Date of Service Jan 22, 2017 ED Provider: Dr. Chester Pt is a 81 year old male with a hx of LE paralysis, DM, HTN, hyperlipidemia, chronic pain and aortic aneurysm presenting to the ED complaining of catheter problems. His catheter was changed yesterday by his home care nurse but they had trouble inserting it, and then this morning he woke up with his bed soaked in urine. He tried flushing the catheter but it did not work. Denies penile pain , fever, nausea, vomiting, SOB or wheezing. He has had trouble with catheters in the past. Nursing Notes Stated Complaint: GENERAL Chief Complaint: General Complaint Nursing Notes Reviewed: Yes (EMUZE, [employer] not reconciled) Allergies: Coded Allergies: No Known Drug Allergies (Verified Allergy, Unknown, 10/17/16) Scheduled Amlodipine (Amlodipine) 5 Mg Tablet 5 MG PO DAILY Aspirin (Aspirin) 81 Mg Tablet 81 MG PO DAILY Ciprofloxacin (Ciprofloxacin) 500 Mg Tablet 500 MG PO BID Enalapril Maleate (Enalapril Maleate) 5 Mg Tablet 5 MG PO BID Hydrocodone-Acetaminophen 7.5-325 mg (Hydrocodone-Acetaminophen 7.5-325 mg) 1 Each Tablet 1 TAB PO TID Metformin (Metformin) 500 Mg Tablet 1,000 MG PO BID Metoprolol Tartrate (Metoprolol Tartrate) 50 Mg Tablet 50 MG PO BID Pravastatin (Pravastatin) 20 Mg Tablet 20 MG PO HS Trazodone (Trazodone) 100 Mg Tablet 100 MG PO HS Ubidecarenone (Co Q-10) 100 Mg Capsule 100 MG PO DAILY Vit A,C & E/Lutein/Minerals (Ocuvite with Lutein Tablet) 1 Each Tablet 1 EACH PO DAILY Miscellaneous Medications Cholecalciferol (Vitamin D3) (Vitamin D3) 1,000 Unit Tab.chew 400 UNIT PO Cranberry Extract (Cranberry) 500 Mg Tablet 300 MG PO Krill/Om-3/Dha/Epa/Phospho/Ast (Megared Middle Bass-3 Krill Oil Sfgl) 500-115-30 Capsule 1 EACH PO Milk Thistle (Milk Thistle) 500 Mg Capsule 1,000 MG PO General Time Seen by MD: 10:52 Chief Complaint Other (Catheter problems) Hx Obtained From: Patient Arrived By: Wheelchair Sudden in Onset?: No Onset Occurred: Yesterday Symptom Duration: Since onset Severity: Current: No pain currently Severity: Maximum: No pain Recent Healthcare: No recent doctor visit, No recent hospitalization Similar Sx Previous: Yes Past Medical History Past Medical History Notes: DNR Past Medical History DM HTN Hyperlipidemia Hx aortic aneurysm Spinal cord injury with paralysis from waist down Hx of chronic pain Past Surgical History Cardiac stents Smoking History Unknown if Ever Smoker Ambulatory Status Wheelchair Review of Systems Problem with catheter. Denies penile pain. Full Review of Systems Constitutional: Denies: Fever Respiratory: Denies: Shortness of breath, Wheezing GI: Denies: Nausea, Vomiting Complete sys rev & neg: except as marked. Physical Exam Vital Signs Vital Signs Date Time Temp Pulse Resp B/P Pulse Ox O2 Delivery O2 Flow Rate FiO2 01/22/17 13:50 14 142/84 99 Room Air 01/22/17 10:36 35.9 76 16 143/81 95 Room Air Initial VS: Reviewed, Vital signs normal Head / Eyes: Atraumatic, Normocephalic, PERRL ENT: Mucous membranes moist, Conjunctiva normal, No scleral icterus Neck: Full range of motion Respiratory: No respiratory distress Abdomen / GI: No distention Extremities: Vascular intact, Neuro intact, No swelling, No tenderness Skin: Warm, Dry, No cyanosis Neurologic: Alert, Oriented, Nonfocal Psychiatric: Mood/affect normal, Behavior normal, Normal thought content General/Constitutional: Awake, Alert, No acute distress, Well appearing, Well developed, Well hydrated, Well nourished, Cooperative, Not toxic appearing Head / Eyes: Atraumatic, Normocephalic, PERRL Cardiovascular: Heart rate NL, Regular rhythm, Heart sounds NL Abdomen: Atraumatic Obese Skin: Atraumatic, Color NL Patient w/suprapubic Herrera Neurologic: Oriented X3, Speech NL Patient paraplegic Re-Eval/Medical Decision Med Decision/Clinical Course This is a 81-year-old male paraplegic with a chronic suprapubic Herrera catheter is referred in from the urology office as the suprapubic Herrera was replaced by home health yesterday, but has not been training of the patient's head discomfort. Attempts to flush the Herrera were unsuccessful. A [address] normally[address] The patient is nontoxic in no acute distress. Initial attempt to replace the Herrera with another 20 Liberian, was unsuccessful. Dr. Silverio was aware the patient admits of the patient, the patient does have discomfort with placement requests some pain medicines, and then was able to personally repplace the suprapubic Herrera with a 16F Dr silverio requestsn= the patient be started on Cipro maintain on it for 5 days following the instrumentation. The patient is being discharged on antibiotics, and he is to follow-up with the urology office. Source of Hx: Old records Time of Eval: 11:59 Patient Status: Condition improved Re-Evaluation/Progress Note: Pt reports that he has had pain with catheter insertion in the past. Time of Eval: 13:02 Patient Status: Condition improved Re-Evaluation/Progress Note: Discussed consultation with Dr. Silverio. Consultation : Referral / Consult Name: Laureano Silverio MD Consulted With: Urology Call Returned at: 12:56 Stitching Machine Setter: Will see patient Note: Give pain meds and try to insert a [address] Silverio arrives. Counseled Regarding: Diagnosis, Lab results, Need for follow-up, When/why to return to ED Discharge & Departure Primary Impression: Herrera catheter problem Encounter type: initial encounter Qualified Code: T83.9XXA - Unspecified complication of genitourinary prosthetic device, implant and graft, initial encounter Disposition: Home Discharge Condition All VS Reviewed: Yes Condition: Improved Additional Instructions: 1. Dr. Silverio was able to replace your suprapubic Herrera. He indicates his office will contact you to schedule follow-up to have it replaced. Call in a few days if you have not heard from them. 2. Continue current medications and therapy. 3. Take the antibiotic ciprofloxacin 500 mg twice a day for the next 5 days. 4. Return to the emergency department if new or worsening symptoms occur Referrals: Felipe Khan Attestation Portions of this note were transcribed by Charis Banks. I, Dr. Chester personally performed the history, physical exam and medical decision-making; I reviewed and confirmed the accuracy of the information in the transcribed note. Signed by: Oneal Cervantes, 01/22/2017. copies to: Felipe Khan Matthew F MD Jan 22, 2017 10:53 CHARIS BANKS Jan 22, 2017 10:57
[2017-01-22] MEDS ORDERED: fentaNYL-PF 50 mCg/mL 2 mL Inj IVPUSH PRN (13:00)
[2017-01-22] MEDS ORDERED: Ondansetron 2 mg/mL 2 mL Inj IVPUSH ONE (13:00)
[2017-01-22 13:50] VITALS: BP 142/84; RESP 14; O2SAT 99
[2017-01-22] MEDS ORDERED: CIPR-198 PO (14:12)
[2017-01-22 14:38] VITALS: BP 135/74; PULSE 74; RESP 16; O2SAT 98
--- NOTE | 2017-01-22 14:40 | CONS ---
[address] [address] CONSULTATION REPORT PATIENT: TARIQ TAMEZ : 1935 MR#: [id number] ADMIT: 01/22/2017 JOB ID: [id number] DATE OF SERVICE: 01/22/2017 EMERGENCY DEPARTMENT CONSULTATION: CHIEF COMPLAINT: Nondraining suprapubic tube. HISTORY OF PRESENT ILLNESS: I was asked by ED Dr. Frederic Chester to evaluate this 81-year-old male for nondraining suprapubic tube. The patient is well known to me with history of prostate cancer status post prostate brachytherapy in 2003 with a low PSA of 0.2 in November 2015 with chronic urinary retention and neurogenic bladder being managed with chronic suprapubic tube. Suprapubic tube was changed yesterday by Home Health nurse with difficulty with suprapubic tube initially able be irrigated with some difficulty. Then overnight the patient had a large amount of urinary leakage from his urethra and Herrera catheter was unable to be irrigated and suprapubic tube was noted to have no drainage last night. The patient presented to the emergency department. The suprapubic tube was removed and a new 20-Palestinian suprapubic tube was attempted to be placed by ED staff. However, this was unsuccessful and suprapubic tube was removed. The patient presently reports no abdominal pain. No fever. No chills. No nausea, no vomiting with some gross hematuria after suprapubic tube change yesterday which has resolved. PAST MEDICAL AND SURGICAL HISTORY: 1. Diabetes mellitus. 2. Hypertension. 3. Hyperlipidemia. 4. Chronic pain. 5. Aortic aneurysm. 6. Spinal cord injury. 7. Neurogenic bladder. 8. Coronary artery disease status post cardiac stents. 9. Paralysis. 10. Prostate cancer as per HPI. Prostate brachytherapy as per HPI. MEDICATIONS: 1. Vitamin D3. 2. Cranberry. 3. Chromo-3. 4. Krill oil. 5. Milk thistle. 6. Amlodipine. 7. Aspirin. 8. Enalapril. 9. Vicodin. 10. Hydrocodone-acetaminophen. 11. Metformin. 12. Metoprolol. 13. Pravastatin. 14. Trazodone. 15. COQ 10. 16. Vitamin A, C and E. ALLERGIES: No known drug allergies. SOCIAL HISTORY: Never smoked. Lives at home. FAMILY HISTORY: Noncontributory. REVIEW OF SYSTEMS: Constitutional: No fever, no chills. GI: No nausea, no vomiting. PHYSICAL EXAMINATION: Vital signs: Afebrile, temperature 35.9 degrees Celsius. Heart rate 76, respiratory rate 16, BP 143/81, O2 sat 95% on room air. General: Well-developed, well-nourished elderly male in no acute distress. HEENT examination: Head normocephalic, atraumatic. Eyes: Extraocular muscle intact. Neck: Supple. Chest: No use of accessory muscles. Nonlabored respirations. No retractions. Abdomen: Soft, nondistended, nontender. No palpable masses. No rebound, no guarding. Suprapubic tube site clean, dry and intact. No bleeding. examination: Penis normal. No lesions. Urethral meatus normal. Skin: Warm and dry. Neurologic examination: Sensation grossly intact to touch. Normal speech. Psych examination: Alert and oriented x3. Normal mood and affect. PROCEDURE NOTE: The patient was given fentanyl IV for pain medication. The suprapubic tube site was prepped and draped in a standard sterile fashion. A 16-Palestinian suprapubic tube was placed through the suprapubic tube through the suprapubic tube tract and able to be placed into the bladder with mild difficulty. The suprapubic tube was irrigated with sterile solution with approximately 240 mL of sterile solution without difficulty with drainage of mildly light blood-tinged urine and no clots. The suprapubic tube balloon was inflated with 7 mL of sterile water. The suprapubic tube was placed to straight drainage. The skin was cleaned and dried. The patient tolerated the procedure well. ASSESSMENT: 1. Chronic urinary retention and neurogenic bladder managed with suprapubic tube noted to be not draining, status post suprapubic tube placement and bladder irrigation via the suprapubic tube at the bedside in the ED today. Recommend that patient be discharged home with suprapubic tube in place and on Cipro antibiotics. Recommend the patient return to see me in the office in five weeks for followup and for suprapubic tube upgrade to 18-Palestinian suprapubic tube with a PSA blood test one week prior to the appointment. This will be arranged by my office. Case was discussed with ED Dr. Frederic Chester and plan was discussed with the patient and his at the bedside. 2. History of prostate cancer status post brachytherapy with low PSA. We will check a PSA in the future. Plan is as above.
[2017-01-22 15:12] LABS: APPEARANCE,URINE HAZY (CLEAR,HAZY); COLOR,URINE YELLOW (YELLOW); PH,URINE 5.5 (5.0-8.0)
[2017-01-22 15:13] LABS: OCCULT BLOOD,URINE LARGE (NEGATIVE); UROBILINOGEN,URINE NORMAL (NORMAL)
== END 2017-01-22 14:39 | disposition home or self-care (01) ==
LOC: SED 10:33
DX: T83.038A Leakage of other urinary catheter, initial encounter (principal); Y93.84 Activity, sleeping; Y92.003 Bedroom of unspecified non-institutional (private) residence as the place of occurrence of the external cause; Y99.8 Other external cause status; E11.9 Type 2 diabetes mellitus without complications; I10 Essential (primary) hypertension; E78.5 Hyperlipidemia, unspecified; G89.29 Other chronic pain; G82.20 Paraplegia, unspecified; I71.9 Aortic aneurysm of unspecified site, without rupture; Z95.5 Presence of coronary angioplasty implant and graft; Z79.84 Long term (current) use of oral hypoglycemic drugs; Z79.82 Long term (current) use of aspirin
CPT/HCPCS: 81000; 87086; 96374; 96375; 99284; J2405; J3010